=== PATIENT | female | born 1975 | race Caucasian/White ===

== ENCOUNTER 2019-09-22 09:56 | Emergency (ER) | payer OTHER, SELFPAY ==
--- NOTE | 2019-09-22 10:09 | ED.NAVMDI ---
HPI - Nausea/Vomiting/Diarrhea General Chief complaint: Nausea/Vomiting/Diarrhea Stated complaint: vomiting, right side pain Time Seen by Provider: 09/22/19 10:11 Source: patient and RN notes reviewed Mode of arrival: ambulatory Limitations: no limitations History of Present Illness HPI Narrative: This is a 44 years old female presents to the office for an evaluation of right side abdominal pain since she woke up this morning. Associated with vomiting twice. Denies fever. Last BM was yesterday; normal. She tried to drink tea which she threw back up. She still have her appendix and gallbladder bladder.Denies sick contact. Related Data Home Medications Medication Instructions Recorded Confirmed No Home Medications 09/22/19 09/22/19 Allergies Allergy/AdvReac Type Severity Reaction Status Date / Time No Known Allergies Allergy Verified 09/22/19 09:59 Review of Systems Review of Systems: Narrative: CONSTITUTIONAL: Denies fever, chills ENT: Denies congestion CARDIOVASCULAR: Denies chest pain, palpitation RESPIRATORY: Denies dyspnea GASTROINTESTINAL: Reports vomiting and right side abdominal pain. : denies urinary symptoms SKIN: Denies rash MUSCULOSKELETAL: Denies acute back pain NEUROLOGIC: Denies lightheaded All other systems reviewed are negative, except as documented in HPI. [facility] Family History Family History Father Family history of malignant neoplasm Other Malignant neoplasm of prostate Social History Social History Smoking status: Never smoker Alcohol intake: current Gender identity (if verbalized by the patient): Female Comments At time of signature, I agree with nursing past medical, surgical, social and family history. There is no relevant family history pertinent to the presenting complaint. Exam Narrative: Exam Narrative: GENERAL: This is a well-nourished, well-developed patient, in no apparent distress. CARDIOVASCULAR: Regular rate and rhythm without murmurs, gallops, or rubs. RESPIRATORY: Clear to auscultation. Breath sounds equal bilaterally. No wheezes, rales, or rhonchi. GASTROINTESTINAL: Abdomen soft,right upper and lower quadrant pain with palpation; nondistended. Bowel sounds are active. Patient is guarding it. SKIN: warm, intact with no suspicious lesions or rash, good texture and turgor. NEURO: awake, alert, and oriented to person, place and time. There were no obvious focal neurologic abnormalities. Steady gait Garry Coma Scale Eye Opening: Spontaneous 4 [place] Coma Scale Motor: Obeys Commands 6 Garry Coma Scale Verbal: Oriented 5 Course Vital Signs Vital signs: Vital Signs Pulse Rate 90 09/22/19 10:10 Respiratory Rate 09/22/19 10:10 Blood Pressure 145/75 H 09/22/19 10:10 Pulse Oximetry 100 09/22/19 10:10 Pulse Rate 90 09/22/19 10:10 Respiratory Rate 09/22/19 10:10 Blood Pressure 145/75 H 09/22/19 10:10 Pulse Oximetry 100 09/22/19 10:10 Transfer Transfered to: [place] Transportation: Other (private car) Accepting physician: Dr. Sena, reports given to JORGE Downs Transfer comments: diagnostic test and higher level care MDM - Nausea/Vomiting/Diarrhea Differential Diagnosis Differential diagnosis: Likely gastroenteritis, dehydration and other (constipation, ovarian cyst, appendicitis, cholecystitis) Critical Care Time Critical Care Time Critical Care Time: No Discharge Plan Discharge Clinical Impression: Abdominal pain Qualifiers: Abdominal location: unspecified location Qualified Code(s): R10.9 - Unspecified abdominal pain Patient Disposition: Acute Care Hospital Condition: Stable Prescriptions: No Action No Home Medications RF: 0 Follow-up/Referrals: Jesus Lovelace MD [Primary Care Provider] - Time of Disposition: : Discharge Date/Time: 09/22/19 10:37
[2019-09-22 10:10] VITALS: BP 145/75; PULSE 90; RESP 20; O2SAT 100
--- NOTE | 2019-09-22 10:34 | PC.NURSE ---
report to [facility]
== END 2019-09-22 10:37 | disposition short-term general hospital (02) ==
PROVIDERS: Emergency Provider Nurse Practitioner; PCP Family Medicine
DX: R10.9 Unspecified abdominal pain (principal)
CPT/HCPCS: 99212; G0463

== ENCOUNTER 2019-09-22 10:57 | Observation (INO) | payer OTHER, SELFPAY ==
[2019-09-22] VITALS (17 sets, daily range): BP systolic 93–141; BP diastolic 54–71; PULSE 67–89; RESP 12–20; TEMP 36.6–37.9; O2SAT 91–100; BMI 44.5; BMI 45.2
--- NOTE | ~2019-09-22 | CT_ITS ---
EXAMINATION: CT abdomen pelvis w con EXAM DATE: 09/22/2019 13:27 INDICATION: Right flank pain. TECHNIQUE: Spiral CT of the abdomen and pelvis was performed following intravenous injection of 100 m L Omnipaque 350. Axial, coronal and sagittal images were reviewed. The dose-length product (DLP) fo r this examination was 1427.80 mGy-cm. The exposure was tailored according to patient size (auto mA exposure control), and iterative reconstruction (ASIR) was used as additional dose reduction techniqu e. There is no prior study for comparison. FINDINGS: There is hepatic steatosis without suspicious focal lesion identified. Spleen, adrenal glan ds, pancreas are unremarkable. Gallbladder is unremarkable. No biliary obstruction. Portal and spl enic veins are patent. Kidneys enhance symmetrically. There is no hydronephrosis. Uterus is antever alexi with a fundal mass likely fibroid measuring 12 cm. Calcifications in the pelvis are believed to b e phleboliths. The bladder is unremarkable. There is no retroperitoneal or pelvic lymphadenopathy. Appendix tip is mildly dilated, appears to be fluid-filled and there is mild adjacent inflammation, a ppearance consistent with acute tip appendicitis. It is retrocecal in location. No abscess. The stom ach and small bowel are unremarkable. There is expected amount of colonic stool. No free intraperi toneal gas. The heart is normal in size. There are no pericardial or pleural effusions. The lung bases are unremarkable. The bones are unremarkable. IMPRESSION: 1. Acute uncomplicated tip appendicitis. Reviewed, dictated and finalized at location A.
[2019-09-22 11:49] LABS: Basophils Absolute Auto 0.1 K/mm3 (0.0-0.1); Basophils Percent Auto 0.3 % (0.2-1.2); Eosinophils Percent Auto 0.3 % (0-4.4); Hematocrit 39.3 % (37.0-47.0); Immature Granulocyte Absolute 0.05 K/mm3 (0.00-0.031); Immature Granulocyte Percent A 0.3 % (0-0.5); Lymphocytes Absolute Auto 1.21 K/mm3 (0.9-3.2); Lymphocytes Percent Auto 7.7 % (18.3-44.2); Mean Corpuscular HGB Conc 33.1 g/dl (32-36); Mean Corpuscular Hemoglobin 27.8 pg (26-34); Mean Corpuscular Volume 84.2 fl (80-100); Mean Platelet Volume 10.4 fl (7.4-10.4); Monocytes Absolute Auto 0.8 K/mm3 (0.1-0.6); Neutrophils Absolute Auto 13.6 K/mm3 (1.3-6.7); Neutrophils Percent Auto 86.4 % (45.5-73.1); Platelet Count Result 277 k/mm3 (150-375); Red Blood Count 4.67 M/mm3 (4.2-5.4); Red Cell Distribution Width 14.4 % (11.5-14.5); White Blood Count 15.7 K/mm3 (4.5-10.0)
[2019-09-22 11:55] LABS: Add Urine Microscopic? YES; Appearance Urine Clear (Clear); Bilirubin Urine Negative (Negative); Blood Urine 3+ (Negative); Color Urine Yellow (Yellow); Glucose Urine UA Negative (Negative); Ketones Urine Negative (Negative); Leukocyte Esterase Ur Negative LEU/UL (Negative); Mucus Urine Rare /lpf; Nitrate Urine Negative (Negative); Protein Urine Negative (Negative); RBC Urine 0-2 /hpf (0-2); Specific Grav Ur 1.025 (1.001-1.035); Squamous Epithelial Cell Urine Moderate /hpf (Few); Urobilinogen Urine Negative mg/dL (<2.0); WBC Urine 0-3 /hpf
[2019-09-22 12:01] LABS: Alanine Aminotransferase 25 U/L (4-35); Albumin Level 4.4 g/dL (3.5-5.1); Alkaline Phosphatase 67 U/L (38-126); Anion Gap 16.4 mmol/L (7-16); Aspartate Amino Transferase 26 U/L (14-36); Bilirubin,Total 0.5 mg/dL (0.2-1.3); Blood Urea Nitrogen 10 mg/dL (7-17); Calcium 9.3 mg/dL (8.4-10.2); Carbon Dioxide 22 mmol/L (22-30); Chloride 103 mmol/L (98-107); Estimated CRCL calculation 186 ml/min; Estimated Glomerular Filt Rate > 60; Glucose 125 mg/dL (65-105); Lipase 77 U/L (23-300); Potassium 4.4 mmol/L (3.4-5.0); Sodium 137 mmol/L (137-145)
--- NOTE | 2019-09-22 12:41 | ED.ABDPAIN ---
HPI - Abdominal Pain General Chief Complaint: Abdominal Pain Stated Complaint: RUQ abd pain Time Seen by Provider: 09/22/19 12:36 History of Present Illness HPI narrative: Patient presents with her sister for right flank pain. Started last night got worse today. She vomited twice at home. She denies fever, chills, or sweats. She denies any known COVID exposure. She still has her gallbladder and her appendix. She gauges the pain at 5 out of 10. She does not currently have nausea. She has no drug allergies. 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 Does not smoke cigarettes, she has occasional alcohol, does not do marijuana. Her surgeries include , bilateral myringotomy tubes, and left meniscus. MD elicited complaint: flank pain Related Data Home Medications Medication Instructions Recorded Confirmed No Home Medications 09/22/19 09/22/19 Allergies Allergy/AdvReac Type Severity Reaction Status Date / Time No Known Allergies Allergy Verified 09/22/19 09:59 Review of Systems Review of Systems: Narrative: CONSTITUTIONAL: Denies fever, chills, or sweats. EYES: Denies visual changes, redness, or discharge. ENT: Denies rhinorrhea, congestion, sore throat, or otalgia. CARDIOVASCULAR: Denies chest pain, palpitations, or edema. RESPIRATORY: Denies cough or dyspnea. GASTROINTESTINAL: She has abdominal pain, nausea, vomiting, but not diarrhea. GENITOURINARY: Denies dysuria or hematuria. SKIN: Denies rash or itching. MUSCULOSKELETAL: Denies back pain, joint pain, or myalgia. NEUROLOGIC: Denies headache, numbness, or weakness. . All systems reviewed & are unremarkable except as noted in HPI and below PMFSH Surgical History Surgical History (Updated 09/22/19 @ 12:44 by Dottie Sena MD) History of History of knee surgery History of myringotomy Social History Social History (Updated 09/22/19 @ 12:45 by Dottie Sena MD) Smoking status: Never smoker Alcohol intake: current Substance use: never Gender identity (if verbalized by the patient): Female Exam Narrative: Exam Narrative: GENERAL: Well-appearing, well-nourished, and in no acute distress. HEAD: Normocephalic, atraumatic. EYES: PERRLA and EOMI. ENT: Nares clear, no rhinorrhea or epistaxis. Mucous membranes moist. NECK: Supple. CHEST: Clear to auscultation. No respiratory distress. HEART: Regular rate and rhythm. No murmur heard. Normal peripheral pulses. ABDOMEN: Soft, nontender, nondistended, normal active bowel sounds. EXTREMITIES: Normal range of motion. No edema. SKIN: Warm, dry, no rash. NEURO: No focal deficits. Alert and oriented x3. PSYCH: Normal mood and affect. Course Consultations Consultation #1: Radiologist called and said she has appendicitis. Date: 09/22/19 Time: 13:44 Consultation #2: Call the general surgeon on-call for the appendicitis case. It would be Dr. Arambula. Date: 09/22/19 Time: 13:45 Consultation #3: Dr. Arambula is in the department and he is taking her to the operating room now. Then she will be admitted to observation under. Date: 09/22/19 Time: 15:30 Vital Signs Vital signs: Vital Signs Temperature 99.9 F H 09/22/19 11:03 Pulse Rate 82 09/22/19 11:03 Respiratory Rate 16 09/22/19 11:03 Blood Pressure 141/68 H 09/22/19 11:03 Pulse Oximetry 100 09/22/19 11:03 Temperature 99.9 F H 09/22/19 11:03 Pulse Rate 83 09/22/19 14:55 Respiratory Rate 18 09/22/19 14:55 Blood Pressure 109/56 L 09/22/19 14:55 Pulse Oximetry 97 09/22/19 14:55 MDM - Abdominal Pain Differential Diagnosis Differential diagnosis: Likely acute appendicitis, calculus of kidney and other (Cholecystitis) Medical Records Attestation: I reviewed the patient's medical records. Lab Data Attestation: I reviewed the patient's lab results. Result diagrams: 09/22/19 11:43 09/22/19 11:43 Labs: Lab Results 09/22/19 09/22/19 09/22/19 Range/Units 11:43 11:43 11:43 WBC
[2019-09-22] MEDS: ONDANSETRON INJ 4 MG/2 ML VIAL IV PUSH (13:02)
[2019-09-22] MEDS: SODIUM CHLORIDE 0.9% IV 1,000 ML 999 ML IV CONT (13:02)
[2019-09-22] MEDS: MORPHINE SULFATE 4 MG/ML INJ IV PUSH ×2 (13:02→14:01)
--- NOTE | 2019-09-22 14:50 | PC.NURSE ---
STEPHANIE GILL AT BEDSIDE TO INFORM PT THAT DR BRODERICK IS ON HIS WAY TO SEE HER ABOUT BEING ADMITTED. PT VERBALIZED UNDERSTANDING, NO FURTHER REQUESTS.
--- NOTE | 2019-09-22 15:38 | PM.IMHP ---
H&P: HPI History of Present Illness Chief complaint: RUQ abd pain Narrative: Jackelin Bolton is a 44 year old female who presented to the ED with her sister for right flank pain. Started in a subtle way Last night around 10:00 p.m. when she was going to bed with some mild discomfort in the epigastrium or periumbilically. She then woke about 0430 this morning with a feeling that she would have a bowel movement. She was able to have a fairly normal bowel movement but then still had periumbilical pain that was moving toward the right side. She went to the urgent care center 1st and after thorough evaluation was moved to the ED for further more intensive workup. CBC and CT scan were done revealing the findings listed below. She vomited twice at home. She denies fever, chills, or sweats. She denies any known COVID exposure. She still has her gallbladder and her appendix. She gauges the pain at 5 out of 10. She does not currently have nausea. She has no drug allergies. 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 Does not smoke cigarettes, she has occasional alcohol, does not do marijuana. Her surgeries include , bilateral myringotomy tubes, and left meniscus. Review of Systems Constitutional: Constitutional: Reports as per HPI and Denies headache(s) Eyes: Eyes: Denies loss of vision and Denies eye pain ENT: Reports Normal hearing present, Denies change in voice, Denies dizziness and Denies headache(s) Cardiovascular: Cardiovascular: Denies chest pain and Denies dyspnea Respiratory: Respiratory: Denies dyspnea and Denies wheezing Gastrointestinal: Gastrointestinal: Reports abdominal pain Genitourinary: Comments: History of x1 11 years ago. Large uterine fibroid by CT scan today. Musculoskeletal: Musculoskeletal: Denies back pain and Denies arthralgias Neurologic: Reports Normal hearing present, Denies dizziness, Denies headache(s), Denies loss of vision and Denies memory loss Psychiatric: Psychiatric: Denies memory loss and Denies panic attacks Endocrine: Endocrine: Reports no additional endocrine complaints Hematologic/Lymphatic: Hematologic/Lymphatic: Reports no additional hematologic/lymphatic complaints Allergic/Immunologic: Allergic/Immunologic: Denies wheezing PMFSH Past Medical History Medical History (Updated 09/22/19 @ 15:44 by Joel Arambula MD) Morbid obesity with BMI of 40.0-44.9, adult (Unknown) Uterine fibroid (Unknown) Surgical History Surgical History History of History of knee surgery History of myringotomy Family History Family History Father Family history of malignant neoplasm Other Malignant neoplasm of prostate Social History Social History Smoking status: Never smoker Alcohol intake: current Substance use: never Gender identity (if verbalized by the patient): Female Meds Home Medications and Allergies Home Medications Medication Instructions Recorded Confirmed Type No Home Medications 09/22/19 09/22/19 History Allergies Allergy/AdvReac Type Severity Reaction Status Date / Time No Known Allergies Allergy Verified 09/22/19 09:59 Vital Signs Vital Signs - 24 hr 09/22/19 11:03 09/22/19 12:01 09/22/19 13:03 Temperature 37.7 C H Pulse Rate 82 78 82 Respiratory Rate 16 16 18 Blood Pressure 141/68 H 118/66 123/66 Pulse Oximetry 100 97 100 09/22/19 14:00 09/22/19 14:55 Temperature Pulse Rate 85 83 Respiratory Rate 18 18 Blood Pressure 105/58 L 109/56 L Pulse Oximetry 99 97 Exam Const: General: cooperative, no acute distress, well developed, alert and awake Nutritional Appearance: well nourished Orientation/consciousness: patient oriented x3 Limitations: no limitations HENMT: Head: normal to inspection, normocephalic and
--- NOTE | 2019-09-22 15:46 | WPDANESEPPF ---
Anes - Initial Pre Proc Eval Procedure: Operation Date: 09/22/19 16:00 Proposed Procedures p Laparoscopic Appendectomy - Joel Arambula MD Date/Time: 09/22/19 15:46 Surgeon: Joel Arambula MD Pre Op Diagnosis: RUQ abd pain Patient Data Age: 44 Gender: F Height: 1.65 m Weight: 121.5 kg Last Vital Signs Temp 37.7 C H 09/22/19 11:03 Pulse 83 09/22/19 14:55 Resp 18 09/22/19 14:55 BP 109/56 L 09/22/19 14:55 Pulse Ox 97 09/22/19 14:55 Allergies Allergy/AdvReac Type Severity Reaction Status Date / Time No Known Allergies Allergy Verified 09/22/19 09:59 Home Medications Medication Instructions Recorded Confirmed Type No Home Medications 09/22/19 09/22/19 History Laboratory Tests 09/22/19 09/22/19 09/22/19 11:43 11:43 11:43 WBC 15.7 K/mm3 H K/mm3 (4.5-10.0) RBC 4.67 M/mm3 M/mm3 (4.2-5.4) Hgb 13.0 g/dL g/dL (12.0-15.0) Hct 39.3 % % (37.0-47.0) MCV 84.2 fl fl (80-100) MCH 27.8 pg pg (26-34) MCHC 33.1 g/dl g/dl (32-36) RDW 14.4 % % (11.5-14.5) Plt Count 277 k/mm3 k/mm3 (150-375) MPV 10.4 fl fl (7.4-10.4) Immature Gran % (Auto) 0.3 % % (0-0.5) Neut % (Auto) 86.4 % H % (45.5-73.1) Lymph % (Auto) 7.7 % L % (18.3-44.2) [place] % (Auto) 5.0 % % (2.6-8.5) Eos % (Auto) 0.3 % % (0-4.4) Baso % (Auto) 0.3 % % (0.2-1.2) Lymph # (Auto) 1.21 K/mm3 K/mm3 (0.9-3.2) [place] # (Auto) 0.8 K/mm3 H K/mm3 (0.1-0.6) Eos # (Auto) 0.0 K/mm3 K/mm3 (0-0.3) Baso # (Auto) 0.1 K/mm3 K/mm3 (0.0-0.1) Abs Immat Gran (auto) 0.05 K/mm3 H K/mm3 (0.00-0.031) Absolute Neuts (auto) 13.6 K/mm3 H K/mm3 (1.3-6.7) Absolute Nucleated RBC 0.0 K/mm3 K/mm3 (0.0-0.012) Nucleated RBC % 0.0 % % (0.0-0.2) Sodium 137 mmol/L mmol/L (137-145) Potassium 4.4 mmol/L mmol/L (3.4-5.0) Chloride 103 mmol/L mmol/L (98-107) Carbon Dioxide 22 mmol/L mmol/L (22-30) Anion Gap 16.4 mmol/L H mmol/L (7-16) BUN 10 mg/dL mg/dL (7-17) Creatinine 0.40 mg/dL L mg/dL (0.7-1.0) Estim Creat Clear Calc 186 ml/min ml/min Estimated GFR > 60 (59 - ) Glucose 125 mg/dL H mg/dL (65-105) Calcium 9.3 mg/dL mg/dL (8.4-10.2) Total Bilirubin 0.5 mg/dL mg/dL (0.2-1.3) AST 26 U/L U/L (14-36) ALT 25 U/L U/L (4-35) Alkaline Phosphatase 67 U/L U/L (38-126) Total Protein 8.0 g/dL g/dL (6.3-8.2) Albumin 4.4 g/dL g/dL (3.5-5.1) Lipase 77 U/L U/L (23-300) Urine Color Yellow (Yellow) Urine Appearance Clear (Clear) Urine pH 5.0 (5.0-9.0) Ur Specific [place] 1.025 (1.001-1.035) Urine Protein Negative mg/dL mg/dL (Negative) Urine Glucose (UA) Negative mg/dL mg/dL (Negative) Urine Ketones Negative mg/dL mg/dL (Negative) Ur Blood (Man) 3+ H (Negative) Urine Nitrate Negative (Negative) Urine Bilirubin Negative (Negative) Urine Urobilinogen Negative mg/dL mg/dL (<2.0) Leukocyte Esterase Rfl Negative SCOTT/UL SCOTT/UL (Negative) Urine RBC 0-2 /hpf /hpf (0-2) Urine WBC 0-3 /hpf /hpf Ur Squamous Epith Cells Moderate /hpf H /hpf (Few) Hyaline Casts 3-4 /lpf H /lpf (None) Urine Mucus Rare /lpf /lpf Patient hx anesthesia problems: none Family hx anesthesia problems: none PMFSH Past Medical History Medical History (Updated 09/22/19 @ 15:44 by Joel Arambula MD) Morbid obesity with BMI of 40.0-44.9, adult (Unknown) Uterine fibroid (Unknown) Surgical History Surgical History (Updated
[2019-09-22] MEDS: LACTATED RINGERS 1,000 ML 30 ML IV CONT (16:00)
[2019-09-22] MEDS: BUPIVACAINE/EPINEPHRINE 0.5% 10 ML VIAL 30 ML INFILTRATE (16:45)
--- NOTE | 2019-09-22 17:51 | PM.PROC ---
Procedure Note - Detailed Date of procedure: 09/22/19 Pre-op diagnosis: RUQ abd pain 1. Acute uncomplicated appendicitis 2. 12 cm uterine fibroid Post-op diagnosis: same Procedure performed: Laparoscopic Appendectomy Description of procedure: The patient was seen again in the Holding Room. The risks, benefits, complications, treatment options, and expected outcomes were discussed with the patient and/or family. The possibilities of reaction to medication, pulmonary aspiration, perforation of viscus, bleeding, recurrent infection, finding a normal appendix, the need for additional procedures, failure to diagnose a condition, and creating a complication requiring transfusion or operation were discussed. There was concurrence with the proposed plan and informed consent was obtained. The site of surgery was properly noted/marked. The patient was taken to Operating Room, and a time out was preformed which identified this as the proper patient, and the procedure verified as laparoscopic appendectomy, possible open. The patient was placed in the supine position and general anesthesia was induced, along with placement of orogastric tube, SCD hose, and a Tinsley catheter. The abdomen was prepped and draped in a sterile fashion. A 5 mm umbilical incision was made and the peritoneal cavity was accessed using the Veress needle technique. Once the abdomen was insufflated to 14 mmHg pressure a 5 mm XL trocar over the 0? 5 mm scope was carefully twisted into the abdomen via the umbilicus. The pneumoperitoneum was then established to steady pressure of 14 mm Hg. A 12 mm laparoscopic port was placed through a transverse suprapubic incision approximately 5-6 cm above the pubic bone slightly to the right of midline.. An additional 5 mm cannula was then placed in the left upper quadrant of the abdomen at a level Approximately 6 cm above and slightly lateral to the umbilicus. A careful evaluation of the entire abdomen was carried out. The patient was placed in Trendelenburg and left lateral decubitus position. was noted that there was a large uterine fibroid on the dome of the uterus. There was a little blood in the abdominal cavity and appeared perhaps are Veress needle had scratched or hit x1 the very top of this fibroid. No continuing with bleeding from this site was noted at the end of the procedure. The small intestines were retracted in the cephalad and left lateral direction away from the pelvis and right lower quadrant. The patient was found to have an enlarged and inflamed appendix with most of the appendix distal half being enlarged and inflamed and with some inflammation of the mesoappendix bringing the blood supply to the proximal and mid appendix. The appendix was laying just to the right of the cecum not truly retrocecal but between the cecum and the right abdominal sidewall. Rotating the cecum medially allowed us to see it well. There was no evidence of perforation. The appendix was carefully dissected. Once it was free a 45 mm ethicon endogastroentestinal stapler with a vascular load was placed across the thick mesoappendix. This was fired and hemostasis was checked along the staple line and appeared to be adequate. I did touch one end of the staple line slightly with the hook cautery to cauterize a small bleeder. Then another cartridge containing a vascular load was applied and the stapler then placed right to the base of the appendix. It was noted that the mesoappendix was rather thick and therefore I did use the hook cautery to score the mesentery or peritoneum over the mesoappendix that came to the appendix. This allowed us to nicely clamped the stapler down across the mesoappendix. This was also fired and bleeding was checked. The appendix was then divided at its base using the same 45 mm stapler with a 3.5 mm bowel wall load. Minimal appendiceal stump was left in place. There was no evidence of bleeding, leakage, or complication after division of the
--- NOTE | 2019-09-22 18:44 | PC.NURSE ---
This patient, Jackelin Bolton, was admitted to Medical Room 348-01. Patient/family oriented to hospital policies and general routines including ID bracelet, bed and alarms, visiting hours, pain management, procedures, bathroom and other care routines, personal items, smoking policy, room service/diet, and visiting hours. Valuables list has been completed. Information on how to activate the Rapid Response Team has been discussed. Patient/Family are encouraged to report perceived risks to care and to ask questions if they do not understand what they are told or what they should do.
--- NOTE | 2019-09-22 19:06 | PC.NURSE ---
On 09/22/19, the Graduate Nurse, [Candace Jang ], provided care and completed [employer] documentation on this patient. I have reviewed the Graduate Nurse's documentation and agree with the findings.
[2019-09-22] MEDS: LACTATED RINGERS 1,000 ML 100 ML IV CONT (19:20)
[2019-09-22] MEDS: SENNA/DOCUSATE SODIUM TABLET 2 TAB PO (20:51)
[2019-09-23 00:23] VITALS: BP 123/62; PULSE 66; RESP 16; TEMP 36.6; O2SAT 95
[2019-09-23] MEDS: ACETAMINOPHEN 500 MG TABLET PO (04:59)
[2019-09-23 05:09] VITALS: BP 122/58; PULSE 66; RESP 16; TEMP 36.9; O2SAT 93
[2019-09-23 05:49] LABS: Hematocrit 34.9 % (37.0-47.0); Hemoglobin 11.2 g/dL (12.0-15.0); Mean Corpuscular HGB Conc 32.1 g/dl (32-36); Mean Corpuscular Hemoglobin 27.3 pg (26-34); Mean Corpuscular Volume 85.1 fl (80-100); Mean Platelet Volume 10.4 fl (7.4-10.4); Platelet Count Result 283 k/mm3 (150-375); Red Cell Distribution Width 14.3 % (11.5-14.5); White Blood Count 11.9 K/mm3 (4.5-10.0)
[2019-09-23 05:57] LABS: Anion Gap 11.1 mmol/L (7-16); Blood Urea Nitrogen 10 mg/dL (7-17); Calcium 9.1 mg/dL (8.4-10.2); Carbon Dioxide 26 mmol/L (22-30); Chloride 103 mmol/L (98-107); Estimated CRCL calculation 155 ml/min; Estimated Glomerular Filt Rate > 60; Glucose 169 mg/dL (65-105); Potassium 4.1 mmol/L (3.4-5.0); Sodium 136 mmol/L (137-145)
--- NOTE | 2019-09-23 08:06 | WPDANESPN ---
Anes - Prog Note Post-Op Date/Time: 09/23/19 08:06 Cardiovascular status: normal Respiratory status: normal Airway patency: baseline Mental status: baseline Post-Op hydration status: normal Vital Signs: Last Vital Signs Temp 36.9 C 09/23/19 05:09 Pulse 66 09/23/19 05:09 Resp 16 09/23/19 05:09 BP 122/58 L 09/23/19 05:09 Pulse Ox 93 09/23/19 05:09 I/O: Intake & Output 09/22/19 09/23/19 09/23/19 23:59 07:59 15:59 Intake Total 100 1600 Output Total 200 1400 Balance -100 200 Laboratory Tests 09/23/19 05:27 09/23/19 05:27 09/22/19 09/22/19 09/22/19 11:43 11:43 11:43 WBC 15.7 H RBC 4.67 Hgb 13.0 Hct 39.3 MCV 84.2 MCH 27.8 MCHC 33.1 RDW 14.4 Plt Count 277 MPV 10.4 Immature Gran % (Auto) 0.3 Neut % (Auto) 86.4 H Lymph % (Auto) 7.7 L [place] % (Auto) 5.0 Eos % (Auto) 0.3 Baso % (Auto) 0.3 Lymph # (Auto) 1.21 [place] # (Auto) 0.8 H Eos # (Auto) 0.0 Baso # (Auto) 0.1 Abs Immat Gran (auto) 0.05 H Absolute Neuts (auto) 13.6 H Absolute Nucleated RBC 0.0 Nucleated RBC % 0.0 Sodium 137 Potassium 4.4 Chloride 103 Carbon Dioxide 22 Anion Gap 16.4 H BUN 10 Creatinine 0.40 L Estim Creat Clear Calc 186 Estimated GFR > 60 Glucose 125 H Calcium 9.3 Total Bilirubin 0.5 AST 26 ALT 25 Alkaline Phosphatase 67 Total Protein 8.0 Albumin 4.4 Lipase 77 Urine Color Yellow Urine Appearance Clear Urine pH 5.0 Ur Specific [place] 1.025 Urine Protein Negative Urine Glucose (UA) Negative Urine Ketones Negative Ur Blood (Man) 3+ H Urine Nitrate Negative Urine Bilirubin Negative Urine Urobilinogen Negative Leukocyte Esterase Rfl Negative Urine RBC 0-2 Urine WBC 0-3 Ur Squamous Epith Cells Moderate H Hyaline Casts 3-4 H Urine Mucus Rare 09/23/19 09/23/19 05:27 05:27 WBC 11.9 H RBC 4.10 L Hgb 11.2 L Hct 34.9 L MCV 85.1 MCH 27.3 MCHC 32.1 RDW 14.3 Plt Count 283 MPV 10.4 Immature Gran % (Auto) Neut % (Auto) Lymph % (Auto) [place] % (Auto) Eos % (Auto) Baso % (Auto) Lymph # (Auto) [place] # (Auto) Eos # (Auto) Baso # (Auto) Abs Immat Gran (auto) Absolute Neuts (auto) Absolute Nucleated RBC Nucleated RBC % Sodium 136 L Potassium 4.1 Chloride 103 Carbon Dioxide 26 Anion Gap 11.1 BUN 10 Creatinine 0.50 L Estim Creat Clear Calc 155 Estimated GFR > 60 Glucose 169 H Calcium 9.1 Total Bilirubin AST ALT Alkaline Phosphatase Total Protein Albumin Lipase Urine Color Urine Appearance Urine pH Ur Specific [place] Urine Protein Urine Glucose (UA) Urine Ketones Ur Blood (Man) Urine Nitrate Urine Bilirubin Urine Urobilinogen Leukocyte Esterase Rfl Urine RBC Urine WBC Ur Squamous Epith Cells Hyaline Casts Urine Mucus Post-procedural complaints: none Patient Feedback: Patient satisfied with anesthetic care.
[2019-09-23 09:27] VITALS: O2SAT 96
[2019-09-23] MEDS: ENOXAPARIN 40 MG/0.4 ML SYRINGE SUB-Q (09:28)
--- NOTE | 2019-09-23 10:18 | PM.DS ---
DS: Admitting Diagnosis Admitting Diagnosis Admitting Diagnosis: Unspecified acute appendicitis Morbid obesity Uterine fibroid DS: Discharge Diagnosis Discharge Diagnosis (1) Appendicitis: Onset Date: ~09/22/19 Qualifiers: Acute appendicitis type: unspecified acute appendicitis type Appendicitis type: acute appendicitis Qualified Code(s): K35.80 - Unspecified acute appendicitis Code(s): K37 - Unspecified appendicitis Status: Acute Assessment and Plan: 09/22/[address] Arambula (2) Morbid obesity with BMI of 40.0-44.9, adult: Onset Date: Unknown Code(s): E66.01 - Morbid (severe) obesity due to excess calories; Z68.41 - Body mass index (BMI) 40.0-44.9, adult Status: Acute Assessment and Plan: Encouraged weight loss and lifestyle changes to promote healthy lifestyle. (3) Uterine fibroid: Onset Date: Unknown Code(s): D25.9 - Leiomyoma of uterus, unspecified Status: Acute Assessment and Plan: Incidentally found on CT scan. F/u with OBGYN as an outpatient. DS: Summary Hospital Course Reason for hospitalization: Jackelin Bolton is a 44 year old female who presented to the ED for right flank pain. She had associated vomiting, but no fever or chills. She initially presented to the urgent care and then was directed to the ED for further workup. CT showed acute uncomplicated tip appendicitis and incidental findings of a 12 cm mass, likely fibroid, on her uterus. Our service was contacted by the ED physician and the patient was admitted for surgical evaluation of the acute appendicitis. Hospital Course: After evaluating the patient, Dr. Arambula took her for an urgent laparoscopic appendectomy on 09/22/19. No intra-operative findings of perforation and no immediate complications. (See operative note for full report). The patient was recovered post-op and transferred to the medical floor. She was slowly advanced on a diet and is tolerating this well this morning. Pain has been well-controlled with Tylenol. She is ambulating well and voiding without complaints. The patient is seen this morning and denies any nausea, vomiting, bloating, or uncontrolled abdominal pain. She is stable for discharge. I discussed all discharge instructions with the patient and answered all questions. Status at Discharge Functional status at discharge: independent ambulation Overall status at discharge: patient is progressing back to baseline Time Spent with Patient Time attestation: Total time spent providing and/or coordinating discharge services: Time spent: Less than 30 minutes Exam Const: General: comfortable, no acute distress, alert and awake Orientation/consciousness: patient oriented x3 Resp: Effort & Inspection: normal respiratory effort Auscultation: clear to auscultation bilaterally Cardio: Rate: regular rate Rhythm: regular rhythm GI: Inspection: non-distended, incision (Abdominal incisions clean/dry/intact.) and obesity GI Palp: Yes Soft to palpation, Yes Tenderness to palpation present (GI) (incisional), No Guarding due to palpation present (GI) and No Rebound tenderness present Auscultation: Hypoactive bowel sounds present Neuro: General: patient oriented x3 and moves all extremities Cranial nerves: Yes CN's II-XII intact bilaterally Speech: normal speech Extrem: General: no calf tenderness and no edema Psych: Mental Status: mental status grossly normal Attitude: cooperative Thought process: Normal thought process present Thought content: Yes Normal thought content present DS: Data Data Completed and Pending Pending studies at discharge: Pending at discharge 09/22/19 16:39 Surgical [PTH] Routine Labs on day of discharge: Labs from last 24 hours 09/23/19 09/23/19 09/22/19 05:27 05:27 11:43 WBC 11.9 H RBC 4.10 L Hgb 11.2 L Hct 34.9 L MCV 85.1 MCH 27.3 MCHC 32.1 RDW 14.3 Plt Count
== END 2019-09-23 12:03 | disposition home or self-care (01) ==
LOC: ANHED 15:30 → ANHSURGERY 15:35 → ANH3MED 18:42
PROVIDERS: Admitting Provider Surgery; Emergency Provider Emergency Medicine; PCP Family Medicine; Visit Provider Surgery
PROC: 0DTJ4ZZ Resection of Appendix, Percutaneous Endoscopic Approach (ICD-10-PCS; CPT 44970; principal; 2019-09-22 16:00)
DX: K35.30 Acute appendicitis with localized peritonitis, without perforation or gangrene (principal); E66.01 Morbid (severe) obesity due to excess calories; Z68.42 Body mass index [BMI] 45.0-49.9, adult; D25.9 Leiomyoma of uterus, unspecified
CPT/HCPCS: 44970; 36415; 74177; 80048; 80053; 81001; 81025; 83690; 85025; 85027; 88304; 96360; 96361; 96372; 96374; 96375; 96376; 99285; A9270; G0378; J0131; J0330; J1650; J2250; J2270; J2405; J2543; J2710; J3010; J7030; J7120; Q9967

== ENCOUNTER 2020-02-15 12:00 | Outpatient (NON) | payer OTHER, SELFPAY ==
[2020-02-15 22:00] LABS: SARS-CoV-2 RNA PCR Positive
== END 2020-02-15 12:01 ==
LOC: ANHCOVIDDT 12:02
PROVIDERS: PCP Family Medicine; Visit Provider Family Medicine
DX: U07.1 COVID-19 (principal); R43.9 Unspecified disturbances of smell and taste; R43.0 Anosmia
CPT/HCPCS: 87635; C9803; U0003

== ENCOUNTER 2020-04-06 09:54 | Outpatient (CLI) | payer OTHER, SELFPAY ==
--- NOTE | ~2020-04-06 | MM_ITS ---
EXAMINATION: MM screening yony BI w [facility] HISTORY: Screening mammogram TECHNIQUE: Craniocaudal and mediolateral oblique 3-D tomosynthesis images were obtained and synthetic 2-D images were generated. CAD analysis was submitted and interpreted. COMPARISON: 03/20/2019, 11/14/2017, 04/24/2016 bilateral digital screening mammogram examinations BREAST PARENCHYMAL COMPOSITION: There are scattered areas of fibroglandular density. FINDINGS: Scattered punctate benign microcalcifications. There is no evidence of suspicious mass, suhail cification, or architectural distortion to suggest malignancy in either breast. There has been no richard picious interval change. IMPRESSION: 1. No mammographic evidence of malignancy. 2. Recommend routine screening mammography in one year. BI-RADS Category 1: Negative Reviewed, dictated and finalized at location A. MA TABLE OPERATOR
== END 2020-04-06 09:55 | disposition home or self-care (01) ==
LOC: ANHIMG 09:59
PROVIDERS: PCP Family Medicine; Visit Provider Obstetrics & Gynecology
DX: Z12.31 Encounter for screening mammogram for malignant neoplasm of breast (principal)
CPT/HCPCS: 77063; 77067

== ENCOUNTER 2022-01-10 11:34 | Outpatient (CLI) | payer BC, SELFPAY ==
--- NOTE | ~2022-01-10 | MM_ITS ---
EXAMINATION: MM screening yony BI w [facility] HISTORY: Screening TECHNIQUE: Craniocaudal and mediolateral oblique 3-D tomosynthesis images were obtained and synthetic 2-D images were generated. CAD analysis was submitted and interpreted. COMPARISON: Comparison to multiple prior studies sequentially, with oldest reviewed study dated 11/09. BREAST PARENCHYMAL COMPOSITION: There are scattered areas of fibroglandular density. FINDINGS: There is no evidence of suspicious mass, calcification, or architectural distortion to sugg est malignancy in either breast. There has been no suspicious interval change. IMPRESSION: 1. No mammographic evidence of malignancy. 2. Recommend routine screening mammography in one year. BI-RADS Category 1: Negative Reviewed, dictated and finalized at location A. NING PROGRAM DEVELOPER
== END 2022-01-10 11:35 | disposition home or self-care (01) ==
PROVIDERS: PCP Family Medicine; Visit Provider Obstetrics & Gynecology
DX: Z12.31 Encounter for screening mammogram for malignant neoplasm of breast (principal)
CPT/HCPCS: 77063; 77067

== ENCOUNTER 2022-06-19 11:20 | Emergency (ER) | payer BC, SELFPAY ==
--- NOTE | ~2022-06-19 | XR_ITS ---
EXAMINATION: XR foot LT min 3V DATE: 06/19/2022 12:01 INDICATION: Left foot pain TECHNIQUE: Dorsoplantar, lateral, and 2 oblique views of the left foot were obtained. COMPARISON: None. FINDINGS: Bone alignment is normal. There is no fracture. There is mild osteoarthritis of multiple in terphalangeal joints. There is a 3 mm radiopaque foreign body in the posterior subcutaneous tissues o f the heel overlying the calcaneus and corresponding to the area of clinical concern. Posterior and p lantar calcaneal enthesophytes are noted. IMPRESSION: 1. 3 mm radiopaque foreign body in the posterior subcutaneous tissues of the heel corresponding to th e area of clinical concern. 2. Polyarticular osteoarthritis. Reviewed, dictated and finalized at location L. IMPRESSION: 1. 3 mm radiopaque foreign body in the posterior subcutaneous tissues of the he el corresponding to the area of clinical concern. 2. Polyarticular osteoarthritis.
[2022-06-19 11:38] VITALS: BP 163/75; PULSE 77; RESP 22; TEMP 36.3; O2SAT 100
--- NOTE | 2022-06-19 12:11 | ED.SKABFB ---
HPI - Skin/Abscess/Foreign Bdy General Chief complaint: Skin/Abscess/Foreign Body Stated complaint: lt heel injury Time Seen by Provider: 06/19/22 12:00 Source: patient, RN notes reviewed and old records reviewed Mode of arrival: ambulatory Limitations: no limitations History of Present Illness HPI narrative: 47 year old female who presents to [facility] care with complaints of stepping on a pencil in her kitchen with a piece of lead breaking off into her left heel area this morning MD complaint: foreign body (heel region of left foot) Onset (ago): hour(s) (this morning) Tetanus up to date: no Location: L foot (heel area medial posterior aspect) Severity scale (1-10): 3 Treatments prior to arrival: bandages (cleansed wound area) Related Data Allergies Allergy/AdvReac Type Severity Reaction Status Date / Time No Known Allergies Allergy Verified 06/19/22 11:43 Review of Systems Review of Systems: CONSTITUTIONAL: Denies fever, chills, or sweats. EYES: Denies visual changes, redness, or discharge. ENT: Denies rhinorrhea, congestion, sore throat, or otalgia. CARDIOVASCULAR: Denies chest pain, palpitations, or edema. RESPIRATORY: Denies cough or dyspnea. GASTROINTESTINAL: Denies abdominal pain, nausea, vomiting, or diarrhea. GENITOURINARY: Denies dysuria or hematuria. SKIN: Denies rash or itching.positive for foreign body to left posterior medial heel area after stepping on pencil this morning MUSCULOSKELETAL: Denies back pain, joint pain, or myalgia. NEUROLOGIC: Denies headache, numbness, or weakness. PSYCHIATRIC: Denies anxiety or depression. All systems reviewed & are unremarkable except as noted in HPI and below PMFSH Past Medical History Medical History (Updated 06/20/22 @ 10:36 by Misty Hinds NP) Acute appendicitis Appendicitis (~09/22/19) Encounter for surgical aftercare following surgery on the digestive system Morbid obesity with BMI of 40.0-44.9, adult (Unknown) Overweight Right flank pain Uterine fibroid (Unknown) Surgical History Surgical History History of History of knee surgery History of laparoscopic appendectomy (~09/22/19) History of myringotomy Family History Family History Father Family history of malignant neoplasm Hypertension Other Malignant neoplasm of prostate Social History Social History Smoking status: Never smoker Alcohol intake: never Substance use: never Substance use type: does not use Gender identity (if verbalized by the patient): Female Spiritual care concerns: No Comments At time of signature, agree with nursing past medical, surgical, social and family history. There is no relevant family history pertinent to the presenting complaint Exam Narrative: GENERAL: Well-appearing, well-nourished, obese and in no acute distress. HEAD: Normocephalic, atraumatic. EYES: PERRLA and EOMI. ENT: Nares clear, no rhinorrhea or epistaxis. Mucous membranes moist.TM's normal with good light reflex, throat pin NECK: Supple.no lymphadenopathy CHEST: Clear to auscultation. No respiratory distress.SAO2 100% on room air HEART: Regular rate and rhythm. No murmur heard. Normal peripheral pulses. ABDOMEN: Soft, nontender, nondistended, normal active bowel sounds. EXTREMITIES: Normal range of motion. No edema. Noted black colored material in puncture wound on left medial posterior heel area after patient reports stepping on pencil this morning, no acute redness at site, no drainage. see procedure noted SKIN: Warm, dry, no rash.. NEURO: No focal deficits. Alert and oriented x3. Course Course Emergency Course: Patient is aware of diagnosis, understands and agrees to treatment plan.? Anticipatory guidance given.? Patient agrees to follow-up as directed and is aware of reasons to seek care at the emergen
[2022-06-19] MEDS: TETANUS,DIPHTHERIA,AC PERTUSSIS ADULT (0.5 ML) BOOSTRIX IM (12:28)
== END 2022-06-19 12:50 | disposition home or self-care (01) ==
PROVIDERS: Emergency Provider Registered Nurse; PCP Family Medicine
DX: S90.852A Superficial foreign body, left foot, initial encounter (principal); W27.8XXA Contact with other nonpowered hand tool, initial encounter; Z23 Encounter for immunization; E66.01 Morbid (severe) obesity due to excess calories; Z68.42 Body mass index [BMI] 45.0-49.9, adult
CPT/HCPCS: 28190; 73630; 90471; 90715; 99213; G0463

== ENCOUNTER 2023-10-03 10:02 | Outpatient (CLI) | payer BC, SELFPAY ==
--- NOTE | ~2023-10-03 | MM_ITS ---
EXAMINATION: MM screening yony BI w [facility] HISTORY: Screening TECHNIQUE: Craniocaudal and mediolateral oblique 3-D tomosynthesis images were obtained and synthetic 2-D images were generated. CAD analysis was submitted and interpreted. COMPARISON: Comparison to multiple prior studies sequentially, with oldest reviewed study dated 11/18. BREAST PARENCHYMAL COMPOSITION: Not dense: There are scattered areas of fibroglandular density. FINDINGS: There is no evidence of suspicious mass, calcification, or architectural distortion to sugg est malignancy in either breast. There has been no suspicious interval change. IMPRESSION: 1. No mammographic evidence of malignancy. 2. Recommend routine screening mammography in one year. BI-RADS Category 1: Negative Reviewed, dictated and finalized at location B.
== END 2023-10-03 10:03 | disposition home or self-care (01) ==
LOC: ANHIMG 10:04
PROVIDERS: PCP Family Medicine; Visit Provider Obstetrics & Gynecology
DX: Z12.31 Encounter for screening mammogram for malignant neoplasm of breast (principal)
CPT/HCPCS: 77063; 77067

== ENCOUNTER 2024-08-13 15:15 | Outpatient (CLI) | payer BC, SELFPAY ==
--- NOTE | ~2024-08-13 | US_ITS ---
EXAM: PELVIC ULTRASOUND HISTORY: Fibroid uterus COMPARISON: None. Reference is made to a CT examination of the abdomen and pelvis dated 09/22/2019 FINDINGS: UTERUS: 11.1 x 6.2 x 5.2 cm. The uterus is anteverted and anteflexed. The endometrial complex measures 9mm. Redemonstration of a for large subserosal fibroid within the anterior RIGHT OVARY: The right ovary is unremarkable in echogenicity and size measuring 2.5 x 2.2 x 2.8 cm. Dopplerable flow is identified. LEFT OVARY: The left ovary is unremarkable in echogenicity and size measuring 3.0 x 3.5 x 2.6 cm Dopplerable flow is identified. A single anechoic avascular focus is identified within the left ovary measuring 18 x 10 x 18 mm, repr esenting a simple cyst (perhaps an involuting follicle) for which no further follow-up is needed. No free fluid is identified within the pelvis. IMPRESSION: Fibroid uterus. No Valsalva images are submitted. However, on the CT examination performed in 2021, an enlarged left gonadal vein was visualized, along with multiple varicosities within the pelvis, findings suggestive of pelvic congestion syndrome, for which clinical correlation is needed, as this may be the source of patient's pelvic pain. Reviewed, dictated and finalized at location A. IMPRESSION: Fibroid uterus. No Valsalva images are submitted. However, on the CT examination performed in 2021, an enlarged left gonadal vein was visualized, along with multiple varicosities within the pelvis, findings s uggestive of pelvic congestion syndrome, for which clinical correlation is need ed, as this may be the source of patient's pelvic pain.
== END 2024-08-13 15:16 | disposition home or self-care (01) ==
LOC: GOSHIMG 15:16
PROVIDERS: PCP Obstetrics & Gynecology; Visit Provider Obstetrics & Gynecology
DX: D25.9 Leiomyoma of uterus, unspecified (principal)
CPT/HCPCS: 76830; 76856